=== PATIENT | female | born 1980 | race Caucasian/White ===

== ENCOUNTER 2022-03-15 20:08 | Emergency (ER) | payer OTHER ==
[~2022-03-15 20:08] MED LIST: TORADOL 10 MG T10 MG PO
[2022-03-15 21:25] LABS: HEMOGLOBIN 15.8 gm/dl (12.3-15.3); RED BLOOD COUNT 5.27 M/UL (4.00-5.10); WHITE BLOOD COUNT 12.4 K/UL (4.5-11.0)
[2022-03-15 21:45] LABS: BUN/CREATININE RATIO 29 (0-10)
== END 2022-03-15 22:16 | disposition home or self-care (01) ==
LOC: ER1 20:08
PROVIDERS: Physician Assistant Medical
DX: H57.04 Mydriasis (principal); H53.8 Other visual disturbances; Z98.84 Bariatric surgery status; Z88.2 Allergy status to sulfonamides; Z88.5 Allergy status to narcotic agent
CPT/HCPCS: 70450; 80053; 81001; 85025; 85610; 99284